=== PATIENT | female | born 1960 | race Caucasian/White ===

== ENCOUNTER 2020-11-03 16:48 | Outpatient (REF) | payer OTHER, SELFPAY | END 2020-11-03 16:49 | disposition home or self-care (01) | LOC: HO.LAB 16:48 | PROVIDERS: Visit Provider Internal Medicine | DX: Z20.828 Contact with and (suspected) exposure to other viral communicable diseases (principal) | CPT/HCPCS: C9803; U0003 ==

== ENCOUNTER 2024-03-16 07:31 | Outpatient (AMB) | payer OTHER, SELFPAY ==
--- NOTE | 2024-03-16 07:33 | MHC.PC.OV ---
Vital Signs 03/16/24 07:37 Height 5 ft 4 in Weight 149 lb BMI 25.6 BP 130/80 Blood Pressure Location Rt brachial Position Sitting Pulse 70 Pulse Source Pulse Oximeter Pulse Oximetry (%) 99 Oxygen Delivery Method Room Air Intake Visit Reasons: INFORMATION TECH /Req Physical Intake Note: Patient here to establish care. Allergies No Known Allergies [No Known Allergies*] Allergy (Unverified 03/16/24 07:37) Medication List - Last Reconciled 03/16/24 by Roma Claire MD amlodipine 5 mg PO DAILY Tobacco use date assessed: 03/16/24 Fall risk assessment: No Falls in past year Last assessed Fall Risk: 03/16/24 Dental Screening Dental Screen Date: 03/16/24 Did you have a dental visit in the last 12 months?: Yes Did you have a dental problem in the last 6 months where you did not have access to dental care?: No Was dental information given to patient?: Patient has dentist HPI INFORMATION TECH /Req Physical HPI Details Pt presents for INFORMATION TECH PE. PFSH Family History (Updated 03/16/24 @ 08:03 by Roma Claire MD) Mother Brain tumor Father CAD (coronary artery disease), Onset Age: 60 Social History (Updated 03/16/24 @ 08:03 by Roma Claire MD) Household Members Other:: , 2 children, 4 grandchildren, retired Housing: House Patient Tobacco Use Status: Former Tobacco user e-Cigarette/Vaping Use: Never Used service: No Current occupational status: retired Cognitive needs: No Hearing needs: No Vision needs: Yes Questionnaire AUDIT C Alcohol Use Questionnaire (AUDIT-C) 1. How often do you have a drink containing alcohol?: Never 3. How often do you have six or more drinks on one occasion?: Never Total Score: 0 Score Reviewed/Action Taken: No Review of Systems Const All systems reviewed & are unremarkable except as noted in HPI and below Reports no additional complaints Eyes Reports no additional complaints ENT Reports no additional complaints Card Reports no additional complaints Resp Reports no additional complaints GI Reports no additional complaints Reports no additional complaints Musc Reports no additional complaints Physical exam (Primary Care) Vital Signs: Last Vital Signs Pulse 70 03/16/24 07:37 BP 130/80 03/16/24 07:37 Pulse Ox 99 03/16/24 07:37 Oxygen Delivery Method Room Air 03/16/24 07:37 BMI result Body Mass Index 25.6 Tobacco/Smoking Status: Tobacco use Status Tobacco use date assessed 03/16/24 03/16/24 07:41 Patient Tobacco Use Status Former Tobacco user 03/16/24 07:41 e-Cigarette/Vaping Use Never Used 03/16/24 07:41 Const General: no acute distress HENMT Head: Yes normal to inspection Ears: hearing grossly normal bilaterally General nose exam: Normal external nose present Face and sinus: Yes normal facial exam Mouth: Normal oral and palatal mucosa present Throat: Yes posterior oropharynx normal Eyes General: appearance normal, both eyes and all related structures Neck Neck: Yes no lymphadenopathy and Yes supple Resp Effort & Inspection: normal respiratory effort Auscultation: clear to auscultation bilaterally Cardio Rhythm: regular rhythm Heart sounds: S1 normal heart sound present and S2 normal heart sound present GI Inspection: Yes normal to inspection Palpation (GI): Soft to palpation Percussion: Yes normal to percussion Auscultation: normal bowel sounds External Female Exam: normal external appearance Speculum Exam - Cervix: normal appearance of the cervix Bimanual Exam- Adnexa, other: normal adnexae Assessment and Plan Assessment & Plan (1) Osteopenia: Comment: DEXA 11/2022 [facility] Code(s): M85.80 - Other specified disorders of bone density and structure, unspecified site Plan: Continue vitamin-D check the level and obtain medical records (2) Colon cancer screening: Comment: [facility] Code(s): Z12.11 - Encounter for screening for malignant neoplasm of colon Plan: Check medical records (3) Annual physical exam: Code(s): Z00.00 - Encounter for general adult medical examination without abnormal findings Plan: Well-balanced diet regular physical activity discussed with the patient Pap smear was done today she is up-to-date with mammogram, patient will have a fasting blood work today follow-up in 6 months (4) HTN (hypertension): Code(s): I10 - Essential (primary) hypertension Plan: Continue amlodipine follow-up in 6 months Orders: Orders TSH reflex Free T4 Today UA w Microscopic Today Vitamin D 25-OH Total Today Pap Smear Today Z00.00 - Encounter for general adult medical examination without abnormal findings Comprehensive [place]. Panel Fast Today Complete Blood Count Auto Diff Today Lipid Panel Today Medications: New amlodipine 5 mg PO DAILY 90 tabs 3RF Coding Level of Care Code New Pt Prev Care 40-64y(75646) Diagnoses Osteopenia M85.80 Colon cancer screening Z12.11 Annual physical exam Z00.00 HTN (hypertension) I10
[2024-03-16 07:37] VITALS: BP 130/80; PULSE 70; O2SAT 99; BMI 25.6
== END 2024-03-16 08:29 | disposition home or self-care (01) ==
PROVIDERS: PCP Internal Medicine; Visit Provider Internal Medicine
DX: M85.80 Other specified disorders of bone density and structure, unspecified site (principal); Z12.11 Encounter for screening for malignant neoplasm of colon; Z00.00 Encounter for general adult medical examination without abnormal findings; I10 Essential (primary) hypertension
CPT/HCPCS: 99386

== ENCOUNTER 2024-03-16 08:28 | Outpatient (REF) | payer OTHER, SELFPAY ==
[2024-03-16 10:30] LABS: MANUAL DIFF FLAG NO
[2024-03-16 10:36] LABS: Basophils Absolute Auto 0.1 X10*3/uL (0.0-0.2); Basophils Percent Auto 1.3 % (0-2); Eosinophils Absolute Auto 0.1 X10*3/uL (0.0-0.4); Eosinophils Percent Auto 2.5 % (0-4); Imm Gran Abs Auto 0.01 X10*3/uL (0.00-0.03); Imm Gran Pct Auto 0.2 % (0.0-0.4); Lymphocytes Absolute Auto 1.8 X10*3/uL (1.2-4.9); Lymphocytes Percent Auto 33.3 % (20-40); Mean Corpuscular HGB Conc 34.2 g/dl (31.0-35.0); Mean Corpuscular Hemoglobin 30.5 pg (27.0-33.0); Mean Corpuscular Volume 89.2 fL (80.0-98.0); Mean Platelet Volume 11.6 fL (9.4-12.3); Monocytes Absolute Auto 0.6 X10*3/uL (0.1-1.2); Monocytes Percent Auto 10.4 % (2-11); Neutrophils Absolute Auto 2.8 x10*3/uL (2.0-8.3); Neutrophils Percent Auto 52.3 % (45-73); Platelet Count 145 X10*3/uL (160-400); Red Blood Count 4.26 X10*6/uL (4.20-5.50); Red Cell Distribution Width 12.2 % (11.0-16.0); White Blood Count 5.3 X10*3/uL (4.8-10.8)
[2024-03-16 10:45] LABS: Appearance Urine Clear; Color Urine Yellow; Glucose Urine UA Negative (Negative); Leukocyte Esterase Urine Negative (Negative); Nitrite Urine Negative (Negative); PH 7.5 (5.0-9.0); Specific Gravity - Urine <= 1.005 (1.005-1.025); Urine Blood Negative (Negative); Urine Ketones Negative (Negative); Urine Protein Negative (Neg-Trace)
[2024-03-16 10:51] LABS: Alanine Aminotransferase 29 U/L (0-31); Albumin Level 4.4 g/dL (3.5-5.0); Alkaline Phosphatase 73 U/L (39-117); Anion Gap 12 (12-20); Aspartate Amino Transferase 23 U/L (5-31); Blood Urea Nitrogen 17 mg/dL (9-16); Calcium 9.7 mg/dL (8.4-10.2); Carbon Dioxide 28 mmol/L (22-29); Chloride 105 mmol/L (96-108); Cholesterol 242 mg/dL (<200); Estimated Glomerular Filt Rate > 60; Glucose Fasting 90 mg/dL (60-99); HDL Cholesterol 94 mg/dL (>40); LDL Cholesterol Calculated 139 mg/dL (<100); Potassium 3.9 mmol/L (3.3-5.1); Sodium 141 mmol/L (135-145); Triglycerides 48 mg/dL (<150)
[2024-03-16 10:52] LABS: Bacteria Urine None Seen (None Seen); Hyaline Casts Urine 0-2 /LPF (0-2); RBC Urine 0-2 /HPF (0-2); Squamous Epithelial Cell Urine 0-2 /HPF (0-2); WBC Urine 0-5 /HPF (0-5)
[2024-03-16 11:12] LABS: TSH reflex Free T4 1.33 uIU/mL (0.32-4.0); Vitamin D 25-OH Total 36.8 ng/mL (>30)
== END 2024-03-16 08:29 | disposition home or self-care (01) ==
LOC: HO.HMGCLDS 08:28
PROVIDERS: PCP Internal Medicine; Visit Provider Internal Medicine
DX: Z13.89 Encounter for screening for other disorder (principal)
CPT/HCPCS: 36415; 80053; 80061; 81001; 82306; 84443; 85025

== ENCOUNTER 2024-03-16 09:07 | Outpatient (REF) | payer OTHER, SELFPAY | END 2024-03-16 09:08 | disposition home or self-care (01) | LOC: HO.LNP 09:07 | PROVIDERS: Visit Provider Internal Medicine | DX: Z00.00 Encounter for general adult medical examination without abnormal findings (principal) | CPT/HCPCS: 88142 ==

== ENCOUNTER 2024-06-14 13:13 | Outpatient (AMB) | payer OTHER, SELFPAY ==
[2024-06-14 13:15] VITALS: BP 124/84; PULSE 82; O2SAT 98; BMI 25.4
--- NOTE | 2024-06-14 13:15 | A.OFFPC_ITS ---
Vital Signs 06/14/24 13:15 Height 5 ft 4 in Weight 148 lb BMI 25.4 BP 124/84 Blood Pressure Location Lt brachial Position Sitting Pulse 82 Pulse Source Pulse Oximeter Pulse Oximetry (%) 98 Oxygen Delivery Method Room Air Intake Visit Reasons: Possible afib Intake Note: Pt is here today for a sick visit. Pt states that her apple watch alarmed her that she is in Afib.Pt states that she is leaving on vacation on Tuesday. Allergies No Known Allergies [No Known Allergies*] Allergy (Unverified 06/14/24 13:21) Medication List - Last Reconciled 06/14/24 by Roma Claire MD amlodipine 5 mg PO DAILY Tobacco use date assessed: 06/14/24 Dental Screening Dental Screen Date: 03/16/24 HPI Possible afib HPI Details Pt presents reporting that her upper watch has been detecting episodes of AFib while patient is sitting resting. She denies palpitations during the episodes nausea vomiting chest pain. Patient works out 4 times a week at the gym and denies any change in exercise tolerance. She has been drinking extra cup of coffee the last 2 weeks in the afternoon because she has been feeling tired. Patient denies any change in his sleep pattern. She has been taking amlodipine for hypertension PFSH Family History Mother Brain tumor Father CAD (coronary artery disease), Onset Age: 60 Social History Household Members Other:: , 2 children, 4 grandchildren, retired Housing: House Patient Tobacco Use Status: Former Tobacco user e-Cigarette/Vaping Use: Never Used service: No Current occupational status: retired Cognitive needs: No Hearing needs: No Vision needs: Yes Questionnaire PHQ-9 Over the last 2 weeks, how often have you been bothered by any of the following problems? 1. Little interest or pleasure in doing things: not at all 2. Feeling down, depressed, or hopeless: not at all 3. Trouble falling or staying asleep, or sleeping too much: not at all 4. Feeling tired or having little energy: several days 5. Poor appetite or overeating: not at all 6. Feeling bad about yourself - or that you are a failure or have let yourself or your family down: not at all 7. Trouble concentrating on things, such as reading the newspaper or watching television: several days 8. Moving or speaking so slowly that other people could have noticed. Or the opposite - being so fidgety or restless that you have been moving around a lot more than usual: not at all 9. Thoughts that you would be better off or of hurting yourself in some way: not at all Total score: 2 Depression Screening Interpretation: Negative Depression Screening Done: Yes Source: Developed by Drs. Yanick Guevara, Marylin Barger, Toño Sheppard and colleagues, with an educational melva from [employer]. Thrive Questionnaire Date Thrive assessed: 06/14/24 I am a: Patient What is your living situation today?: I have a steady place to live Within the past 12 months, did the food you bought not last and you didn't have the money to get more?: Never true Within the past 12 months, did you worry whether your food would run out before you got money to buy more?: Never true Do you have trouble paying for medicines?: No Do you have trouble getting transportation to medical appointments?: No Do you have trouble paying your heating and electricity bill?: No Do you have trouble taking care of your child, family member or friend?: No Do you have trouble with day-to-day activities such as bathing, preparing meals, shopping, managing finances, etc.?: No Are you currently unemployed and looking for a job?: No Are you interested in more education?: No Please select the resources that you would like help with: Housing/Nursing Home Currently or been in a relationship where the following occur: No concerns reported THRIVE Score: 0 AUDIT C Alcohol Use Questionnaire (AUDIT-C) 1. How often do you have a drink containing alcohol?: Never Total Score: 0 ROSALINDA-7 AMB Questionnaire ROSALINDA-7 Date ROSALINDA - 7 assessed: 06/14/24 Feeling nervous, anxious, or on edge: 0 = Not at all Not being able to stop or control worryin = Not at all Worrying too much about different things: 0 = Not at all Trouble relaxin = Not at all Being so restless that it is hard to sit still: 0 = Not at all Becoming easily annoyed or irritable: 0 = Not at all Feeling afraid as if something awful might happen: 0 = Not at all Total ROSALINDA-7 score (0-4 normal; 5-9 mild; 10-14 moderate; 15-21 severe): 0 Source: Developed by Drs. Yanick Guevara, Marylin Barger, Toño Sheppard and colleagues, with an educational melva from [employer]. Review of Systems Const All systems reviewed & are unremarkable except as noted in HPI and below Eyes Reports no additional complaints ENT Reports no additional complaints Card Reports no additional complaints Resp Reports no additional complaints GI Reports no additional complaints Reports no additional complaints Physical exam (Primary Care) Vital Signs: Last Vital Signs Pulse 82 06/14/24 13:15 BP 124/84 06/14/24 13:15 Pulse Ox 98 06/14/24 13:15 Oxygen Delivery Method Room Air 06/14/24 13:15 BMI result Body Mass Index 25.4 Tobacco/Smoking Status: Tobacco use Status Tobacco use date assessed 06/14/24 06/14/24 13:24 Patient Tobacco Use Status Former Tobacco user 06/14/24 13:24 e-Cigarette/Vaping Use Never Used 06/14/24 13:15 PHQ-9: PHQ-9 Score PHQ-9: Total score 2 06/14/24 13:24 Depression Screening Interpretation: Negative Thrive Assessment: Date of Thrive Assessment Date Thrive assessed 06/14/24 06/14/24 13:24 Currently or been in a relationship where the following occur: No concerns reported Const General: no acute distress HENMT Head: Yes normal to inspection Ears: hearing grossly normal bilaterally Eyes General: appearance normal, both eyes and all related structures Neck Neck: Yes supple Resp Effort & Inspection: normal respiratory effort Auscultation: clear to auscultation bilaterally Cardio Rhythm: regular rhythm Heart sounds: S1 normal heart sound present and S2 normal heart sound present GI Inspection: Yes normal to inspection Palpation (GI): Soft to palpation Percussion: Yes normal to percussion Assessment and Plan Assessment & Plan (1) Arrhythmia: Code(s): I49.9 - Cardiac arrhythmia, unspecified Plan: EKG showed normal sinus rhythm with occasional PVCs, 3 day Holter will be obtained to evaluate for paroxysmal AFib and Echo will be scheduled. Electrolytes magnesium level and TSH will be checked today. Orders: Orders Magnesium Today I49.9 - Cardiac arrhythmia, unspecified Basic Metabolic Panel Today I49.9 - Cardiac arrhythmia, unspecified TSH reflex Free T4 Today I49.9 - Cardiac arrhythmia, unspecified ECG 3 day holter monitor Today I49.9 - Cardiac arrhythmia, unspecified CA echo transthoracic complete Today I49.9 - Cardiac arrhythmia, unspecified Coding Level of Care Code Est Pt Level 3 (65955) Diagnoses Arrhythmia I49.9
== END 2024-06-14 14:43 | disposition home or self-care (01) ==
PROVIDERS: PCP Internal Medicine; Visit Provider Internal Medicine
DX: I49.9 Cardiac arrhythmia, unspecified (principal)
CPT/HCPCS: 99213

== ENCOUNTER → 2024-07-13 08:56 | Outpatient (REF) | payer OTHER, SELFPAY ==
--- NOTE | 2024-07-13 08:59 | HM_ITS ---
Conclusion: 1. Patient was monitored for total period of 3 days 2. Baseline was normal sinus rhythm with average heart of 65 beats per minute 3. Frequent sinus bradycardia noted with 38% of time heart rate below 60 beats per minute with no significant pauses 4. Frequent PACs noted with total burden of 5.6% with frequent short SVT events, longest lasting 15 beats and the fastest at 182 beats per minute 5. Patient marked the counter 1 time without any associated symptoms reported which correlated with sinus rhythm MTDD
--- NOTE | 2024-07-13 08:59 | CA_ITS ---
Transthoracic Echocardiogram Patient (Last, First, Middle): Betsy Gonzalez A Gender: Female Date of : 1960 Age: 64 Procedure Date: 07/13/2024 Procedure Type: Transthoracic Echocardiogram Location: OP Height: 165. cm Weight: 66.23 kg BSA: 1.73 m2 Heart Rate: 61 bpm BP: 155 / 85 mmHg Auto Salvage Worker: DIPIKA Referring MD: Roma Claire MD Tool [employer] Level Five: Gene Viveros MD Symptoms: I49.9 - Cardiac arrhythmia, unspecified Study Quality: Fair ECG Rhythm: Arrhythmia Conclusions: - Essentially normal study Findings Left Ventricle Normal left ventricular size, thickness, and systolic function. The visually estimated ejection fraction is between 55-60%. Spectral Doppler is indicative of a normal filling pattern. Right Ventricle Normal right ventricular cavity size and systolic function. Atria The left atrium is normal in size. There is no evidence of interatrial shunt. The right atrium is normal in size. Aortic Valve Normal aortic valve structure and function. There is no aortic valve stenosis. There is no aortic valve regurgitation. Mitral Valve Normal mitral valve structure and function. There is trace mitral valve regurgitation. There is no mitral valve stenosis. Pulmonic Valve The pulmonic valve is likely normal. There is trace pulmonic valve regurgitation. Tricuspid Valve Normal tricuspid valve structure. There is trace tricuspid valve regurgitation. The right ventricular systolic pressure is normal. The right ventricular systolic pressure is 19 mmHg. Normal right atrial pressure. There is no evidence of pulmonary hypertension. Great Vessels The pulmonary artery was not well visualized. There is no dilatation of the ascending aorta measuring 3.30 cm. Venous The inferior vena cava is normal in size and collapses greater than 50% with inspiration. Pericardium/Pleural There is no evidence of pericardial effusion. Prior Study Comparison No prior study available for comparison. Measurements 2D Linear Measurements IVSd: 0.80 0.6-0.9/0.6-1.0 cm LVIDd: 4.57 3.9-5.3/4.2-5.9 cm LVIDd Index: 2.64 2.4-3.2/2.2-3.1 cm/m2 LVIDs: 3.04 2.0-3.6 cm LVPWd: 0.77 0.7-1.1 cm LA Diam: 3.50 2.7-3.8/3.0-4.0 cm LAIDs Index: 2.02 1.5-2.3 cm/m2 LV Mass: 141.12 67-162/88-224 g LV Mass Index: 81.57 43-95/49-115 g/m2 LVOT Diam: 1.90 3.0+(-)1.3 cm 2D Systolic Function EF 4C: 59.00 >55% EF 2C: 55.80 >55% EF BiP: 57.00 >55% Mitral Valve MV Pk E: 0.84 MV PK A: 0.77 MV Decel Time: 180.00 E/A: 1.10 E'Lateral: 10.70 E'Medial: 8.16 E/E' Med: 10.30 E/E' Lat: 7.90 PHT: 53.00 MVA PHT: 4.15 Decel [place]: 4.68 Aortic Valve AoV Pk Dylan: 1.46 AoV Mn Dylan: 1.02 AoV VTI: 0.34 AoV Pk Grad: 9.00 Aov Mn Grad: 5.00 IVONNE Cont.VTI: 2.16 LVOT LVOT Pk Dylan: 1.02 LVOT Mn Dylan: 0.79 LVOT VTI: 0.26 LVOT Pk Grad: 4.00 LVOT Mn Grad: 3.00 LVOT Diam: 1.90 LVOT Area: 2.84 Diastolic Function MV Pk E: 0.84 MV Pk A: 0.77 E/A: 1.10 E'Medial: 8.16 E/E' Med: 10.30 E' Laterial: 10.70 E/E' Lat: 7.90 Right Ventricle TAPSE (mm): 23.60 TVS' Dylan: 12.50 Tricuspid Valve TR Pk Dylan: 2.00 TR Pk Grad: 16.00 RA Press: 3.00 RVSP: 19.00 Great Vessels Aorta Sinus of Valsalva: 2.50 2.0-3.5 cm Ao Asc: 3.30 2.1-3.4 cm Pulmonary Valve PV Pk Dylan: 1.21 Peak PV Grad: 6.00 Updated in Other Vendor System with Status of Final Gene Viveros MD electronically signed on 07/13/2024 11:53:09 AM with status of Final
== END ==
LOC: HO.CARD 08:56
PROVIDERS: PCP Internal Medicine; Visit Provider Internal Medicine
DX: I49.9 Cardiac arrhythmia, unspecified (principal)
CPT/HCPCS: 93242; 93306

== ENCOUNTER → 2024-07-13 08:59 | Outpatient (BNV) | payer OTHER, SELFPAY | PROVIDERS: PCP Internal Medicine; Visit Provider Internal Medicine Cardiovascular Disease | DX: I49.1 Atrial premature depolarization (principal) | CPT/HCPCS: 93244; 93306 ==

== ENCOUNTER 2024-09-28 07:55 | Outpatient (AMB) | payer OTHER, SELFPAY ==
--- NOTE | 2024-09-28 08:09 | MHC.PC.OV ---
Vital Signs 09/28/24 08:10 Height 5 ft 4 in Weight 148 lb BMI 25.4 BP 110/68 Blood Pressure Location Lt brachial Position Sitting Pulse 77 Pulse Source Pulse Oximeter Pulse Oximetry (%) 100 Oxygen Delivery Method Room Air Intake Visit Reasons: 6M F/U Intake Note: Pt is here today for 6 months follow up visit. Allergies No Known Allergies [No Known Allergies*] Allergy (Unverified 09/28/24 08:11) Medication List - Last Reconciled 09/28/24 by Roma Claire MD amlodipine 5 mg PO DAILY Tobacco use date assessed: 09/28/24 Fall risk assessment: 1 Fall in past year Last assessed Fall Risk: 09/28/24 Dental Screening Dental Screen Date: 09/28/24 Did you have a dental visit in the last 12 months?: Yes Did you have a dental problem in the last 6 months where you did not have access to dental care?: No Was dental information given to patient?: Patient has dentist HPI 6M F/U HPI Details Patient presents for the follow-up on hypertension controlled amlodipine. She denies any symptoms of recurrent palpitations or increased heart rate. Patient has been exercising 3 times a week and denies any exercise-induced symptoms of chest pain or palpitations PFSH Family History Mother Brain tumor Father CAD (coronary artery disease), Onset Age: 60 Social History Household Members Other:: , 2 children, 4 grandchildren, retired Housing: House Patient Tobacco Use Status: Former Tobacco user e-Cigarette/Vaping Use: Never Used service: No Current occupational status: retired Cognitive needs: No Hearing needs: No Vision needs: Yes Questionnaire Thrive Questionnaire Date Thrive assessed: 06/14/24 I am a: Patient What is your living situation today?: I have a steady place to live Within the past 12 months, did the food you bought not last and you didn't have the money to get more?: Never true Within the past 12 months, did you worry whether your food would run out before you got money to buy more?: Never true Do you have trouble paying for medicines?: No Do you have trouble getting transportation to medical appointments?: No Do you have trouble paying your heating and electricity bill?: No Do you have trouble taking care of your child, family member or friend?: No Do you have trouble with day-to-day activities such as bathing, preparing meals, shopping, managing finances, etc.?: No Are you currently unemployed and looking for a job?: No Are you interested in more education?: No Please select the resources that you would like help with: None Currently or been in a relationship where the following occur: No concerns reported THRIVE Score: 0 AUDIT C Alcohol Use Questionnaire (AUDIT-C) 1. How often do you have a drink containing alcohol?: Never 3. How often do you have six or more drinks on one occasion?: Never Total Score: 0 ROSALINDA-7 AMB Questionnaire ROSALINDA-7 Date ROSALINDA - 7 assessed: 06/14/24 Source: Developed by Drs. Yanick Guevara, Marylin Barger, Toño Sheppard and colleagues, with an educational melva from [employer]. Review of Systems Const All systems reviewed & are unremarkable except as noted in HPI and below ENT Reports no additional complaints Card Reports no additional complaints Resp Reports no additional complaints GI Reports no additional complaints Physical exam (Primary Care) Vital Signs: Last Vital Signs Pulse 77 09/28/24 08:10 BP 110/68 09/28/24 08:10 Pulse Ox 100 09/28/24 08:10 Oxygen Delivery Method Room Air 09/28/24 08:10 BMI result Body Mass Index 25.4 Tobacco/Smoking Status: Tobacco use Status Tobacco use date assessed 09/28/24 09/28/24 08:15 Patient Tobacco Use Status Former Tobacco user 09/28/24 08:09 e-Cigarette/Vaping Use Never Used 09/28/24 08:09 Thrive Assessment: Date of Thrive Assessment Date Thrive assessed 06/14/24 09/28/24 08:09 Currently or been in a relationship where the following occur: No concerns reported Const General: no acute distress HENMT Head: Yes normal to inspection Neck Neck: Yes supple Resp Effort & Inspection: normal respiratory effort Auscultation: clear to auscultation bilaterally Cardio Rhythm: regular rhythm Heart sounds: S1 normal heart sound present and S2 normal heart sound present GI Inspection: Yes normal to inspection Palpation (GI): Soft to palpation Office Procedures Flu Questionnaire Does the patient have a severe egg allergy?: No Does the patient have severe life threatening allergies?: No Does the patient have a fever or illness today?: No Has the patient ever had Guillain-[place] Syndrome?: No Has the patient ever had any past reaction to a flu shot?: No Immunizations Fluarix Triv [id number] (PF) 45 mcg (15 mcg x 3)/0.5 mL IM syringe Performing Provider: Roma Claire MD Performing Location: [facility] [place] [facility] Administered by: REGGIE Huitron on 09/28/24 08:47 Dose Route Admin Location Dispensed Lot Number Expiration Date NDC Material Control Supervisor 0.5 mL IM Right Deltoid 0.5 mL [id number] 05/13/25 [id number] [employer] VIS Given Date VIS Provided VIS Publication Date 09/28/24 Single Vaccine 21 Eligibility Eligibility Date Funding Source Not [facility] Eligible 09/28/24 Private Coding Level of Care Code Est Pt Level 3 (59936) Diagnoses HTN (hypertension) I10 Arrhythmia I49.9 Assessment & Plan Assessment & Plan (1) HTN (hypertension): Code(s): I10 - Essential (primary) hypertension Category: Medical Plan: Continue amlodipine (2) Arrhythmia: Comment: Normal echo, Holter frequent sinus bradycardia 68% with a heart rate of less than 60, no pauses PA-C burden 5.6%, SVTs the longest 15 beats. No correlation with the symptoms 08/2024 Code(s): I49.9 - Cardiac arrhythmia, unspecified Category: Medical Plan: Check blood work including magnesium and electrolytes. Patient was advised to avoid stimulants such as caffeinated drinks Orders: Orders Comprehensive [place]. Panel Fast Today I10 - Essential (primary) hypertension, I49.9 - Cardiac arrhythmia, unspecified TSH reflex Free T4 Today I10 - Essential (primary) hypertension, I49.9 - Cardiac arrhythmia, unspecified TSH reflex Free T4 7 Months E55.9 - Vitamin D deficiency, unspecified, I10 - Essential (primary) hypertension, I49.9 - Cardiac arrhythmia, unspecified, Z00.00 - Encounter for general adult medical examination without abnormal findings Complete Blood Count Auto Diff Today I10 - Essential (primary) hypertension, I49.9 - Cardiac arrhythmia, unspecified Magnesium Today I10 - Essential (primary) hypertension, I49.9 - Cardiac arrhythmia, unspecified Vitamin D 25-OH Total Today I10 - Essential (primary) hypertension, I49.9 - Cardiac arrhythmia, unspecified Influenza [id number] Immunization Today Z23 - Encounter for immunization Lipid Panel 7 Months E55.9 - Vitamin D deficiency, unspecified, I10 - Essential (primary) hypertension, I49.9 - Cardiac arrhythmia, unspecified, Z00.00 - Encounter for general adult medical examination without abnormal findings Comprehensive [place]. Panel Fast 7 Months E55.9 - Vitamin D deficiency, unspecified, I10 - Essential (primary) hypertension, I49.9 - Cardiac arrhythmia, unspecified, Z00.00 - Encounter for general adult medical examination without abnormal findings Complete Blood Count Auto Diff 7 Months E55.9 - Vitamin D deficiency, unspecified, I10 - Essential (primary) hypertension, I49.9 - Cardiac arrhythmia, unspecified, Z00.00 - Encounter for general adult medical examination without abnormal findings Vitamin D 25-OH Total 7 Months E55.9 - Vitamin D deficiency, unspecified, I10 - Essential (primary) hypertension, I49.9 - Cardiac arrhythmia, unspecified, Z00.00 - Encounter for general adult medical examination without abnormal findings
[2024-09-28 08:10] VITALS: BP 110/68; PULSE 77; O2SAT 100; BMI 25.4
== END 2024-09-28 10:30 | disposition home or self-care (01) ==
PROVIDERS: PCP Internal Medicine; Visit Provider Internal Medicine
DX: I10 Essential (primary) hypertension (principal); I49.9 Cardiac arrhythmia, unspecified; Z23 Encounter for immunization

== ENCOUNTER 2024-09-28 07:55 | Outpatient (REF) | payer OTHER, SELFPAY ==
[2024-09-28 10:06] LABS: MANUAL DIFF FLAG NO
[2024-09-28 10:12] LABS: Basophils Absolute Auto 0.1 X10*3/uL (0.0-0.2); Basophils Percent Auto 1.3 % (0-2); Eosinophils Absolute Auto 0.2 X10*3/uL (0.0-0.4); Eosinophils Percent Auto 2.8 % (0-4); Hematocrit 40.9 % (37.0-47.0); Hemoglobin 13.6 g/dl (12.0-16.0); Imm Gran Abs Auto 0.02 X10*3/uL (0.00-0.03); Imm Gran Pct Auto 0.3 % (0.0-0.4); Lymphocytes Percent Auto 33.5 % (20-40); Mean Corpuscular HGB Conc 33.3 g/dl (31.0-35.0); Mean Corpuscular Hemoglobin 29.9 pg (27.0-33.0); Mean Corpuscular Volume 89.9 fL (80.0-98.0); Mean Platelet Volume 11.3 fL (9.4-12.3); Monocytes Absolute Auto 0.7 X10*3/uL (0.1-1.2); Monocytes Percent Auto 11.4 % (2-11); Neutrophils Percent Auto 50.7 % (45-73); Platelet Count 167 X10*3/uL (160-400); Red Blood Count 4.55 X10*6/uL (4.20-5.50); Red Cell Distribution Width 12.5 % (11.0-16.0)
[2024-09-28 10:51] LABS: Alanine Aminotransferase 31 U/L (0-31); Albumin Level 4.6 g/dL (3.5-5.0); Alkaline Phosphatase 81 U/L (39-117); Anion Gap 9 (12-20); Aspartate Amino Transferase 23 U/L (5-31); Blood Urea Nitrogen 18 mg/dL (9-16); Calcium 9.5 mg/dL (8.4-10.2); Carbon Dioxide 31 mmol/L (22-29); Chloride 103 mmol/L (96-108); Estimated Glomerular Filt Rate > 60; Glucose Fasting 96 mg/dL (60-99); Magnesium 2.3 mg/dL (1.6-2.6); Sodium 139 mmol/L (135-145); Total Protein 7.4 g/dL (6.5-8.0)
[2024-09-28 11:09] LABS: TSH reflex Free T4 1.41 uIU/mL (0.32-4.0); Vitamin D 25-OH Total 76.6 ng/mL (>30)
== END 2024-09-28 07:56 | disposition home or self-care (01) ==
LOC: HO.HMGCLDS 07:55
PROVIDERS: PCP Internal Medicine; Visit Provider Internal Medicine
DX: I10 Essential (primary) hypertension (principal); I49.9 Cardiac arrhythmia, unspecified
CPT/HCPCS: 36415; 80053; 82306; 83735; 84443; 85025; 90471; 90656; 99212

== ENCOUNTER 2025-04-26 13:04 | Outpatient (REF) | payer MEDICARE, SELFPAY ==
[2025-04-26 16:08] LABS: MANUAL DIFF FLAG NO
[2025-04-26 16:16] LABS: Basophils Absolute Auto 0.1 X10*3/uL (0.0-0.2); Basophils Percent Auto 1.3 % (0-2); Eosinophils Absolute Auto 0.1 X10*3/uL (0.0-0.4); Eosinophils Percent Auto 1.6 % (0-4); Hematocrit 38.6 % (37.0-47.0); Hemoglobin 13.1 g/dl (12.0-16.0); Imm Gran Abs Auto 0.01 X10*3/uL (0.00-0.03); Imm Gran Pct Auto 0.1 % (0.0-0.4); Lymphocytes Absolute Auto 2.2 X10*3/uL (1.2-4.9); Lymphocytes Percent Auto 32.2 % (20-40); Mean Corpuscular HGB Conc 33.9 g/dl (31.0-35.0); Mean Corpuscular Hemoglobin 29.6 pg (27.0-33.0); Mean Corpuscular Volume 87.3 fL (80.0-98.0); Mean Platelet Volume 11.7 fL (9.4-12.3); Monocytes Absolute Auto 0.6 X10*3/uL (0.1-1.2); Monocytes Percent Auto 9.2 % (2-11); Neutrophils Absolute Auto 3.8 x10*3/uL (2.0-8.3); Neutrophils Percent Auto 55.6 % (45-73); Platelet Count 167 X10*3/uL (160-400); Red Blood Count 4.42 X10*6/uL (4.20-5.50); Red Cell Distribution Width 12.6 % (11.0-16.0); White Blood Count 6.8 X10*3/uL (4.8-10.8)
[2025-04-26 16:45] LABS: Alanine Aminotransferase 40 U/L (0-31); Albumin Level 4.9 g/dL (3.5-5.0); Alkaline Phosphatase 66 U/L (39-117); Anion Gap 13 (12-20); Aspartate Amino Transferase 29 U/L (5-31); Bilirubin Total 1.5 mg/dL (0.0-1.0); Blood Urea Nitrogen 14 mg/dL (9-16); Carbon Dioxide 28 mmol/L (22-29); Chloride 106 mmol/L (96-108); Cholesterol 261 mg/dL (<200); Estimated Glomerular Filt Rate > 60; Glucose Fasting 86 mg/dL (60-99); HDL Cholesterol 99 mg/dL (>40); LDL Cholesterol Calculated 151 mg/dL (<100); Potassium 4.6 mmol/L (3.3-5.1); Sodium 142 mmol/L (135-145); Total Protein 7.2 g/dL (6.5-8.0); Triglycerides 56 mg/dL (<150)
[2025-04-26 16:50] LABS: TSH reflex Free T4 0.92 uIU/mL (0.32-4.0); Vitamin D 25-OH Total 94.9 ng/mL (>30)
== END 2025-04-26 13:05 | disposition home or self-care (01) ==
LOC: HO.HMGCLDS 13:04
PROVIDERS: PCP Internal Medicine; Visit Provider Internal Medicine
DX: Z00.00 Encounter for general adult medical examination without abnormal findings (principal); Z23 Encounter for immunization; I10 Essential (primary) hypertension; E55.9 Vitamin D deficiency, unspecified; Z78.0 Asymptomatic menopausal state
CPT/HCPCS: 36415; 80053; 80061; 82306; 84443; 85025; 90471; 90677; 96127

== ENCOUNTER 2025-04-26 13:04 | Outpatient (AMB) | payer MEDICARE, SELFPAY ==
[2025-04-26 13:46] VITALS: BP 128/76; PULSE 60; TEMP 36.5; O2SAT 99; BMI 25.7
--- NOTE | 2025-04-26 13:48 | A.OFFVIS_ITS ---
Intake Vital Signs 04/26/25 13:46 04/26/25 13:53 Height 5 ft 4 in Weight 150 lb BMI 25.7 25.7 BP 128/76 Blood Pressure Location Lt brachial Position Sitting Pulse 60 Pulse Source Pulse Oximeter Temp 97.7 F Temp Source Oral Pulse Oximetry (%) 99 Oxygen Delivery Method Room Air Intake Visit Reasons: AWV G0438 Intake Note: Pt is here today for AWV. Cable Technician Required: No Allergies No Known Allergies [No Known Allergies*] Allergy (Verified 04/26/25 13:48) Medication List - Last Reconciled 04/26/25 by Roma Claire MD amlodipine 5 mg PO DAILY cyclosporine 0.09% (Cequa) 1 drp ophthalmic (eye) Q12H HPI AWV G0438 HPI Details Initiated the conversation about Advanced Directives. Advanced Directives help? patients prepare for current and future decisions about their medical treatment? and place of care. Discussed with patient that it is a process where a patients? current condition and prognosis are reviewed, their wishes for information? regarding their illness are elicited, and likely medical dilemmas are presented? and options discussed. The form can be amended as needed, reviewed yearly and? make changes as needed IPPE/AWV ? year old presents? for her ? Annual? Wellness Visit, initial visit.? Medical / Social History Reviewed? Past Medical History ?Yes? . ? [place]? of Care / Care Team list updated ?Yes . ? Surgical/Hospitalization? History ?Yes . ? Current Medications? (including OTC and supplements) ?Yes . ? Family History ?Yes? . ? Tobacco? Control form ?Yes . ? AUDIT-C (Alcohol use) form? ?Yes . ? Illicit drug use in Social? History ?Yes . ? Current diagnosis of? depression? ?No ? Appropriate PHQ2/PHQ9? completed ?Yes . ? Data entered by ?Medical? Cable Technician and reviewed by provider ? Fall Risk ? Fall? History? Have you had any falls with? injury in the past year? ?No . ? Have you had two or more? falls in the past year? ?No . ? Fall Risk Assessment: ?No? falls in the past year . ? HRA filled out by? the patient, reviewed by Provider and scanned. ? IPPE/AWV ? Balance? [place]berg? ?Yes . ? Tandem? walk ?Yes . ? Walk and? Turn ?Yes . ? Rise from? sit to stand ?Yes . ?Vision? Corrective? lens ?Yes ? Vision? screen ? Up-to-date, has an appointment [] for vision? screening and glaucoma screening ?Hearing? Whisper? test ?pass .? Initiated the conversation about Advanced Directives. Advanced Directives help? patients prepare for current and future decisions about their medical treatment? and place of care. Discussed with patient that it is a process where a patients? current condition and prognosis are reviewed, their wishes for information? regarding their illness are elicited, and likely medical dilemmas are presented? and options discussed. The form can be amended as needed, reviewed yearly and? make changes as needed Written? Plan?Completed. See Patient? Documents. PFSH Surgical History (Updated 04/26/25 @ 13:54 by REGGIE Huitron) Hx of tonsillectomy Family History (Updated 04/26/25 @ 13:55 by REGGIE Huitron) Mother Brain tumor Father CAD (coronary artery disease), Onset Age: 60 Brother Substance use disorder Social History Household Members Other:: , 2 children, 4 grandchildren, retired Housing: House Patient Tobacco Use Status: Former Tobacco user e-Cigarette/Vaping Use: Never Used service: No Current occupational status: retired Cognitive needs: No Hearing needs: No Vision needs: Yes Questionnaire Medicare Wellness Checkup What [age] 65-69 What gender do you identify with?: female During the past 4 weeks, how much have you been bothered by emotional problems such as feeling anxious, depressed, irritable, sad or downhearted, and blue?: not at all During the past 4 weeks, has your physical & emotional health limited your social activities with family, friends, neighbors, or groups?: not at all During the past 4 weeks, how much bodily pain have you generally had?: very mild pain During the past 4 weeks, was someone available to help you if you needed & wanted help?: yes, as much as I wanted During the past 4 weeks, what was the hardest physical activity you could do for at least 2 minutes?: very heavy Can you get to places out of walking distance without help? (For eg., can you travel alone on buses, taxis or drive your car?): Yes Can you go shopping for groceries or clothes without someone's help?: Yes Can you prepare your own meals?: Yes Can you do your housework without help?: Yes Because of any health problems, do you need the help of another person with your personal care needs such as eating, bathing, dressing or getting around the house?: No Can you handle your own money without help?: Yes During the past 4 weeks, how would you rate your health in general?: good During the past 4 weeks how have things been going for you?: pretty well Are you having difficulties driving your car?: no Do you always fasten your seat belt when you are in a car?: yes, usually During past 4 weeks, have you been bothered by the following: never: Falling or dizzy when standing up, Sexual problems?, Trouble eating well?, Teeth or denture problems? and Problems using the telephone? and sometimes: Tiredness or fatigue? Have you fallen 2 or more times in the past year?: No Are you afraid of falling?: No Are you a smoker?: no During the past 4 weeks, how many drinks of wine, beer, or other alcoholic beverages did you have?: no alcohol at all Do you exercise for about 20 minutes 3 or more times a week?: yes, most of the time Have you been given information to help with the following?: no: Hazards in your house that might hurt you? and no: Keeping track of your medications? How often do you have trouble taking medicines the way you have been told to take them?: I always take medicine as prescribed How confident are you that you can control & manage most of your health problems?: very confident What is your race?: White Mini Mental State Exam (MMSE) Orientation What is the (year) (season) (date) (day) (month)?: year, season, date, day and [facility] Where are we (state) (county) (town or city) (hospital) (floor)?: state, county, town or city, hospital/clinic and floor Registration Name of 3 unrelated objects clearly and slowly, then ask patient to repeat all 3 of them. (1st repeat determines score. Make sure they can repeat all three): object 1, object 2 and object 3 Attention & Calculation (CHOOSE ONE) Ask pt to begin with 100 & count backward by 7. Stop after 5 repeats. If pt cannot ask them to spell the word WORLD backward.: 93 Spell WORLD backwards (DLROW): 5 letters Recall Ask patient to repeat the 3 items from question #3.: object 1, object 2 and object 3 Language Show patient a wristwatch & ask what it is. Repeat for pencil.: watch and pencil Ask the patient to repeat the phrase 'No ifs, ands, or buts' after you.: correct Ask the patient to 'take a piece of paper with their right hand' 'fold paper in half' 'place paper on floor': take paper in right hand, fold paper in half and place paper on floor Print the sentence 'CLOSE YOUR EYES' on a piece. If patient actually closes eyes then score.: followed written direction Give patient a blank piece of paper & ask to write a sentence. Score if it contains a noun & verb.: sentence contains subject and verb Score Score: 30 PHQ-9 Over the last 2 weeks, how often have you been bothered by any of the following problems? 1. Little interest or pleasure in doing things: not at all 2. Feeling down, depressed, or hopeless: not at all 3. Trouble falling or staying asleep, or sleeping too much: not at all 4. Feeling tired or having little energy: several days 5. Poor appetite or overeating: several days 6. Feeling bad about yourself - or that you are a failure or have let yourself or your family down: not at all 7. Trouble concentrating on things, such as reading the newspaper or watching television: not at all 8. Moving or speaking so slowly that other people could have noticed. Or the opposite - being so fidgety or restless that you have been moving around a lot more than usual: not at all 9. Thoughts that you would be better off or of hurting yourself in some way: not at all Total score: 2 Depression Screening Interpretation: Negative Depression Screening Done: Yes 81741 - PHQ-9 Billing: Yes Source: Developed by Drs. Yanick Guevara, Marylin Barger, Toño Sheppard and colleagues, with an educational melva from [employer]. Review of Systems Const All systems reviewed & are unremarkable except as noted in HPI and below Eyes Reports no additional complaints ENT Reports no additional complaints Card Reports no additional complaints Resp Reports no additional complaints GI Reports no additional complaints Reports no additional complaints Skin/Breast Reports system reviewed and no additional complaints, except as documented Neuro Reports no additional complaints Physical Exam Vital Signs: Last Vital Signs Temp 97.7 F 04/26/25 13:46 Pulse 60 04/26/25 13:46 BP 128/76 04/26/25 13:46 Pulse Ox 99 04/26/25 13:46 Oxygen Delivery Method Room Air 04/26/25 13:46 BMI result Body Mass Index 25.7 Const General: no acute distress HEENT Head: Yes normal to inspection Ears: hearing grossly normal bilaterally Eyes General: appearance normal, both eyes and all related structures Neck Neck: Yes no lymphadenopathy and Yes supple Resp Effort & Inspection: normal respiratory effort Auscultation: clear to auscultation bilaterally Cardio Rhythm: regular rhythm Heart sounds: S1 normal heart sound present and S2 normal heart sound present GI Inspection: Yes normal to inspection Palpation (GI): Soft to palpation Percussion: Yes normal to percussion Auscultation: normal bowel sounds Extrem General: Yes no clubbing, cyanosis or edema Immunizations pneumoc 20-supriya conj-dip cr(PF) 0.5 mL IM syringe Performing Provider: Roma Claire MD [place] [facility] Administered by: Reyna Ca CMA on 04/26/25 14:23 Dose Route Admin Location Dispensed Lot Number Expiration Date [facility] Instrument Mechanics Supervisor 0.5 mL IM Right Deltoid 0.5 mL [id number] 01/11/26 [id number] [employer] VIS Given Date VIS Provided VIS Publication Date 04/26/25 Single Vaccine 21 Eligibility Eligibility Date Funding Source Not [facility] Eligible 04/26/25 Private Assessment & Plan Assessment & Plan (1) Colon cancer screening: Comment: [facility] Code(s): Z12.11 - Encounter for screening for malignant neoplasm of colon Plan: Check Cologuard (2) Annual physical exam: Code(s): Z00.00 - Encounter for general adult medical examination without abnormal findings Plan: Well-balanced diet regular physical activity discussed with the pt, she will have a fasting blood work today. Patient is up-to-date with the mammogram (3) HTN (hypertension): Code(s): I10 - Essential (primary) hypertension Plan: Continue Amlodipine (4) Postmenopausal: Code(s): Z78.0 - Asymptomatic menopausal state Plan: check DEXA Orders: Orders Pneumococcal 20 Immunization Today Z23 - Encounter for immunization Complete Blood Count Auto Diff 1 Year E55.9 - Vitamin D deficiency, unspecified, I10 - Essential (primary) hypertension TSH reflex Free T4 1 Year E55.9 - Vitamin D deficiency, unspecified, I10 - Essential (primary) hypertension Vitamin D 25-OH Total 1 Year E55.9 - Vitamin D deficiency, unspecified, I10 - Essential (primary) hypertension Complete Blood Count Auto Diff Today E55.9 - Vitamin D deficiency, unspecified, I10 - Essential (primary) hypertension Comprehensive [place]. Panel Fast Today E55.9 - Vitamin D deficiency, unspecified, I10 - Essential (primary) hypertension Lipid Panel Today E55.9 - Vitamin D deficiency, unspecified, I10 - Essential (primary) hypertension TSH reflex Free T4 Today E55.9 - Vitamin D deficiency, unspecified, I10 - Essential (primary) hypertension XR DEXA axial skeleton Today E55.9 - Vitamin D deficiency, unspecified, I10 - Essential (primary) hypertension, Z78.0 - Asymptomatic menopausal state Vitamin D 25-OH Total Today E55.9 - Vitamin D deficiency, unspecified, I10 - Essential (primary) hypertension Comprehensive [place]. Panel Fast 1 Year E55.9 - Vitamin D deficiency, unspecified, I10 - Essential (primary) hypertension Lipid Panel 1 Year E55.9 - Vitamin D deficiency, unspecified, I10 - Essential (primary) hypertension Quality Reporting (2020) Depression/Bipolar (159/160/161/177) PHQ-9: Total score: 2 Coding Level of Care Code Medicare Subsequent (G0439) Diagnoses Colon cancer screening Z12.11 Annual physical exam Z00.00 HTN (hypertension) I10 Postmenopausal Z78.0 CPT Codes Advance Care Planning - Advance Care Planning discussion: On file, no changes ([id number]) Advance Care Planning - Time spent: 1-15 minutes, on File ([id number]) Additional Codes PHQ-9 - 88432 - PHQ-9 Billing: Yes ([id number]) Advance Care Planning Advance Care Planning discussion: On file, no changes Forms completed: Health Care Proxy Time spent: 1-15 minutes, on File Did not discuss due to Cultural/Spiritual beliefs: Yes
[2025-04-26 13:53] VITALS: BMI 25.7
== END 2025-04-26 15:14 | disposition home or self-care (01) ==
LOC: HO.HMCC 13:05
PROVIDERS: PCP Internal Medicine; Visit Provider Internal Medicine
DX: Z00.00 Encounter for general adult medical examination without abnormal findings (principal); I10 Essential (primary) hypertension; Z12.11 Encounter for screening for malignant neoplasm of colon; Z78.0 Asymptomatic menopausal state; Z23 Encounter for immunization

== ENCOUNTER 2025-06-07 07:53 | Outpatient (REF) | payer MEDICARE, SELFPAY ==
--- NOTE | ~2025-06-07 | MM_ITS ---
EXAMINATION: DXA BONE DENSITY AXIAL HISTORY: Z78.0 - Asymptomatic menopausal state TECHNIQUE: Minus Dual energy absorptiometry (DEXA) of the lumbar spine, total left hip, and femoral neck was performed. COMPARISON: There are no prior studies for comparison. FINDINGS: The bone mineral density of the lumbar spine is 0.958 g/cm2, corresponding to a T-score of -1.9, and a Z-score of -0.3. This is indicative of osteopenia. The bone mineral density of the left total hip is 0.776 g/cm2, corresponding to a T-score of -1.8, and a Z-score of -0.7. This is indicative of osteopenia. The bone mineral density of the left femoral neck is 0.768 g/cm2, corresponding to a T-score of -1.9, and a Z-score of -0.5. This is indicative of osteopenia. FRACTURE RISK: The FRAX index suggests a risk of major osteoporotic fracture of 10.5%, and of hip fracture 1.6%. MM/XR DEXA axial skeleton IMPRESSION: Based on bone mineral density, and according to World Health Organization (WHO) criteria, the diagnosis is consistent with osteopenia. Statistically, 68% of repeat scans fall within 1 SD (+/- 0.010 g/cm2 for AP spine L1-L4) and 1 SD (+/- 0.012 g/cm2 for femur total) FRAX is a trademark of the [employer] [place] for Metabolic Bone Disease, a World Health Organization (WHO) Collaborating Center. Electronically signed by: Yanick Centeno MD 06/07/2025 09:30 AM EDT
--- OUTSIDE RECORDS SUMMARY | 2025-06-07 07:55 | XMS_ITS | Clinical Summary ---
Author Organization [facility] Address [address] [place] [id number] Phone Care Team Providers Care High Lighter Name Role Phone Lisset Reinoso NP Primary Care Provider [phone] Allergies No known active allergies Medications amLODIPine (NORVASC) 5 MG tablet Take 5 mg by mouth daily. Active Active Problems Problem Noted Date Diagnosed Date Dysplastic nevus of right shoulder 06/29/2024 Family History Medical History Relation Comments Heart block Father Brain cancer Mother Relation Status Comments Father Mother Social History Tobacco Use Types Packs/Day Years Used Date Smoking Tobacco: Former Cigarettes 1 7 1980 Tobacco Cessation:Counseling Given: Not Answered Alcohol Use Standard Drinks/Week Comments Not Currently 0 (1 standard drink = 0.6 oz pur e alcohol) Education Answer Date Recorded Are you interested in more education? Not on amber e 04/23/2024 Are you concerned about learning? Not on file 04/23/2024 No 04/23/2024 No 04/23/2024 Digital Access Answer Date Recorded No 04/23/2024 No 04/23/2024 Reliable internet access at home? Not on file 04/23/2024 Device with a working camera? Not on file Comments Unknown Sex and Gender Information Value Date Recorded Sex Assigned at Not on file Legal Sex Female 10:00 AM EDT Gender Identity Not on file Sexual Orientation Not on file Last Filed Vital Signs Vital Sign Reading Time Taken Comments Blood Pressure 122/77 04/26/2024 3:12 PM EDT Pulse 63 04/26/2024 3:12 PM EDT Temperature - - Respiratory Rate - - Oxygen Saturation - - Inhaled Oxygen Concentration - - Weight 68.1 kg (150 lb 3.2 oz) 04/26/2024 3:12 P M EDT Height 163.8 cm (5' 4.5 ) 04/26/2024 3:12 PM EDT Body Mass Index 25.38 04/26/2024 3:12 PM EDT Plan of Treatment Health Maintenance Due Date Last Done Comments Adult Td,Tdap Booster 1960 LIPID PANEL 1960 DEPRESSION SCREENING 1972 SMOKING Hx and SMOKELESS TOB ACCO SCREENING 1973 HEPATITIS C SCREENING 1978 HIV ONE-TIME SCREENING (18-6 5 YEARS) 1978 SCREENING FOR DIABETES 1995 MAMMOGRAM 2000 COLOGUARD 2005 COLONOSCOPY 2005 COLORECTAL CANCER SCREENING 2005 FIT TEST 2005 FOBT 2005 SIGMOIDOSCOPY 2005 VIRTUAL COLONOSCOPY 2005 PNEUMOCOCCAL VACCINES (50+ y ears) (1 of 1 - PCV) 2010 ZOSTER VACCINES (1 of 2) 2010 COVID-19 VACCINE (1 - 2023-2 5 season) 2024 OSTEOPOROSIS SCREENING INITI AL (ONE-TIME) 2025 RSV VACCINE (1 - 1-dose 75+ series) 2035 HEPATITIS A VACCINES Aged Out No long er eligible based on patient's age to complete this topic HIB VACCINES Aged Out No longer eligi ble based on patient's age to complete this topic MENINGOCOCCAL VACCINES (ACWY) Aged Out No longer eligible based on patient's age to complete this topic MENINGOCOCCAL VACCINES (B) Aged Out N o longer eligible based on patient's age to complete this topic Medical Devices Not on file Insurance [facility]ello [facility] [place] [address] [place] [address] [place] [address] [employer] [facility] DIRECT Care Teams High Lighter Relationship Specialty Start Date End Date Lisset Reinoso NP [address] [place] [address] PCP - General Nurse Practitioner 04/23/24 Additional Source Comments The information contained in this document represents components of the legal health record. It is not the complete legal health record.[facility]
== END 2025-06-07 07:54 | disposition home or self-care (01) ==
LOC: HO.MAMMO 07:53
PROVIDERS: PCP Internal Medicine; Visit Provider Internal Medicine
DX: Z13.820 Encounter for screening for osteoporosis (principal); Z78.0 Asymptomatic menopausal state; E55.9 Vitamin D deficiency, unspecified; I10 Essential (primary) hypertension
CPT/HCPCS: 77080

== ENCOUNTER → 2025-06-07 08:15 | Outpatient (BNV) | payer MEDICARE, SELFPAY | PROVIDERS: PCP Internal Medicine; Visit Provider Radiology Diagnostic Radiology | DX: E28.39 Other primary ovarian failure (principal) | CPT/HCPCS: 77080 ==